=== PATIENT | female | born 1945 | race Hispanic/Latino ===

== ENCOUNTER 2024-07-08 16:50 | Inpatient (IN) | payer OTHER ==
[~2024-07-08] VITALS: Ht 162.6 cm; Wt 65.2 kg
[2024-07-08] VITALS (22 sets, daily range): BP systolic 83–138; BP diastolic 31–68; PULSE 86–113; RESP 12–30; TEMP 100.6–101.6; O2SAT 99
[2024-07-08] MEDS ORDERED: 0.9%NACL 1000ML 1,000 ML IV SCH ×2 (18:00→19:00)
[2024-07-08] MEDS ORDERED: MAGNESIUM 2GM PREMIX 50ML 50 ML IV SCH (18:00)
[2024-07-08 18:30] LABS: BASOPHILS # (AUTO) 0.05 K/uL (0.00-0.20); BASOPHILS % (AUTO) 0.2 % (0.0-5.0); HEMATOCRIT 32.1 % (36-48); IMMATURE GRANULOCYTE ABSOLUTE 0.24 K/uL (0-1); LYMPHOCYTES # (AUTO) 0.6 K/uL (1.0-4.8); LYMPHOCYTES % (AUTO) 2.2 % (21.0-51.0); MEAN CORPUSCULAR HEMOGLOBIN 31.3 pg (27.0-33.0); MEAN CORPUSCULAR HGB CONC 32.4 g/dL (32.0-36.0); MEAN CORPUSCULAR VOLUME 96.7 fL (79-99); MONOCYTES # (AUTO) 1.7 K/uL (0.1-1.0); MONOCYTES % (AUTO) 5.9 % (3.0-13.0); NEUTROPHILS # (AUTO) 26.6 K/uL (1.8-7.7); NEUTROPHILS % (AUTO) 90.9 % (40.0-77.0); PLATELET COUNT (AUTO) 210 K/uL (130-400); RED BLOOD CELL COUNT(AUTO) 3.32 MIL/uL (4.00-5.50); WHITE BLOOD COUNT (AUTO) 29.2 K/uL (4.8-10.8)
[2024-07-08 18:58] LABS: HEMOGLOBIN A1C 11.5 % (4.0-6.0)
[2024-07-08] MEDS ORDERED: HEParin 5,000 UNIT VIAL IV PRN (19:00)
[2024-07-08 19:03] LABS: ALBUMIN 3.3 g/dL (3.5-5.0); BILIRUBIN,TOTAL 0.3 mg/dL (0.2-1.0); CREATININE 2.5 mg/dL (0.5-1.0); POTASSIUM 4.4 mmol/L (3.5-5.1); THYROID STIMULATING HORMONE 1.8 uIU/mL (0.36-3.74); TOTAL PROTEIN, SERUM 7.1 g/dL (6.0-8.3)
[2024-07-08] MEDS: levoFLOXacin 500 MG/D5W 100 ML 100 ML IV SCH (19:09)
[2024-07-08] MEDS: HEParin 25,000 UNITS/250ML D5W 250 ML IV SCH (19:18)
[2024-07-08] MEDS: INSULIN REGULAR, HUMAN 3ML 100 UNIT in 0.9%NACL 100ML 100 ML IV SCH (19:21)
[2024-07-08 19:35] LABS: ABG BASE EXCESS -10.4 mmol/L (-2.0-3.0); ABG HCO3 13.1 mmol/L (21.0-28.0); ABG OXYGEN SATURATION 98.1 % (94.0-98.0); ABG PCO2 23 mmHg (32-45); ABG PH 7.375 (7.350-7.450); CARBON MONOXIDE 0.3 % (0.5-1.5); DEVICE COMMENT LR RN TED; HHb 1.9; PO2, ARTERIAL BG 147.6 mmHg (83.0-108.0); VENT MODE, BG NC (ROOM AIR)
[2024-07-08] MEDS ORDERED: PHARMACY COMMUNICATION MISC SCH (20:00)
[2024-07-08] MEDS: RENAL DOSE IV ONE (20:00)
[2024-07-08] MEDS ORDERED: VANCOMYCIN PROTOCOL PER PHARMACY IV SCH (20:00)
[2024-07-08] MEDS: ALBUTEROL 0.083% 2.5 MG/3 ML INH IH STA (20:29)
[2024-07-08] MEDS ORDERED: acetaMINOPHEN 650 MG SUPPOSITORY RC PRN (20:30)
[2024-07-08] MEDS ORDERED: ONDANSETRON 4MG INJ IVP PRN (20:30)
[2024-07-08] MEDS ORDERED: DiphenhydrAMINE HCL 50 MG/ML VIAL IV PRN (20:30)
[2024-07-08] MEDS: POTASSIUM CHLORIDE 20MEQ/10ML 20 MEQ in 0.9%NACL 1000ML 990 ML IV SCH (20:54)
[2024-07-08 21:13] LABS: CREATININE 2.6 mg/dL (0.5-1.0); POTASSIUM 4.3 mmol/L (3.5-5.1)
[2024-07-08] MEDS: FAMOTIDINE 20MG VIAL IV SCH (21:31)
[2024-07-08] MEDS: ceFEPime HCL 1 GM VIAL IVPB SCH (21:31)
[2024-07-08] MEDS: VANCOMYCIN 1G/250ML KIT 250 ML IV SCH (21:32)
[2024-07-08 23:53] LABS: INFLUENZA TYPE A Negative For Type A (NEGATIVE); INFLUENZA TYPE B Negative For Type B (NEGATIVE)
[2024-07-09] VITALS (51 sets, daily range): BP systolic 80–140; BP diastolic 26–74; PULSE 81–102; RESP 15–63; TEMP 97.7–99.1; O2SAT 94–99
[2024-07-09 00:01] LABS: SARS-CoV-2, RNA, NAAT NEGATIVE SARS CoV-2 (NEGATIVE)
[2024-07-09 01:17] LABS: CREATININE 2.6 mg/dL (0.5-1.0); POTASSIUM 3.5 mmol/L (3.5-5.1)
[2024-07-09] MEDS: POTASSIUM CHLORIDE 10MEQ/100ML 100 ML IV PRN (01:47)
[2024-07-09] MEDS: D5W-1/2 NS/20MEQ KCL 1,000 ML IV SCH (01:50)
[2024-07-09] MEDS: NOREPINEPHRIN 4MG/NS 250ML 250 ML IV PRN (02:24)
[2024-07-09] MEDS: 0.9%NACL 1000ML 1,000 ML IV SCH (03:28)
[2024-07-09] MEDS ORDERED: ALBUMIN (HUMAN) 25% 50 ML IV SCH (03:30)
[2024-07-09 04:19] LABS: BASOPHILS # (AUTO) 0.02 K/uL (0.00-0.20); BASOPHILS % (AUTO) 0.1 % (0.0-5.0); HEMATOCRIT 28.2 % (36-48); LYMPHOCYTES # (AUTO) 0.6 K/uL (1.0-4.8); LYMPHOCYTES % (AUTO) 2.8 % (21.0-51.0); MEAN CORPUSCULAR HEMOGLOBIN 31.6 pg (27.0-33.0); MEAN CORPUSCULAR HGB CONC 32.6 g/dL (32.0-36.0); MEAN CORPUSCULAR VOLUME 96.9 fL (79-99); MONOCYTES # (AUTO) 1.5 K/uL (0.1-1.0); MONOCYTES % (AUTO) 6.3 % (3.0-13.0); NEUTROPHILS # (AUTO) 20.6 K/uL (1.8-7.7); NEUTROPHILS % (AUTO) 89.9 % (40.0-77.0); PLATELET COUNT (AUTO) 184 K/uL (130-400); RED BLOOD CELL COUNT(AUTO) 2.91 MIL/uL (4.00-5.50); RED CELL DISTRIBUTION WIDTH 14.3 % (11.0-15.5); WHITE BLOOD COUNT (AUTO) 22.9 K/uL (4.8-10.8)
[2024-07-09 04:43] LABS: CREATININE 2.7 mg/dL (0.5-1.0); MAGNESIUM 2.1 mg/dL (1.80-2.40); POTASSIUM 4.1 mmol/L (3.5-5.1)
[2024-07-09] MEDS: ASPIRIN 81MG CHEW TAB PO SCH (08:18)
[2024-07-09] MEDS: CLOPIDOGREL 75MG TAB PO SCH (08:19)
[2024-07-09 09:32] LABS: ABG BASE EXCESS -10.3 mmol/L (-2.0-3.0); ABG HCO3 13.3 mmol/L (21.0-28.0); ABG PCO2 25 mmHg (32-45); ABG PH 7.347 (7.350-7.450); DEVICE COMMENT LR SYLVIA; PO2, ARTERIAL BG 161.1 mmHg (83.0-108.0); VENT MODE, BG NC (ROOM AIR)
[2024-07-09 09:44] LABS: CREATININE 2.5 mg/dL (0.5-1.0); POTASSIUM 4.3 mmol/L (3.5-5.1)
[2024-07-09 11:28] LABS: CREATININE,URINE RANDOM 46.56 mg/dL (30-135)
[2024-07-09 11:32] LABS: APPEARANCE,URINE CLOUDY (CLEAR); BILIRUBIN,URINE NEGATIVE (NEGATIVE); COLOR,URINE LIGHT-YELLOW (YELLOW); GLUCOSE, URINE (UA) >=1000 mg/dL (NEGATIVE); KETONES,URINE 5 mg/dL (NEGATIVE); LEUKOCYTE ESTERASE ,URINE 75 Leu/uL (NEGATIVE); NITRATE,URINE NEGATIVE (NEGATIVE); OCCULT BLOOD,URINE SMALL (NEGATIVE); PH,URINE 5.5 (5.0-8.0); PROTEIN,URINE 30 mg/dL (NEGATIVE); UROBILINOGEN,URINE 0.2 mg/dL (0.2-1.0)
[2024-07-09 11:33] LABS: ADD UA MICROSCOPIC YES
[2024-07-09 11:35] LABS: BACTERIA,URINE MOD /HPF (None Seen); MUCUS,URINE RARE LPF (None Seen); SQUAMOUS EPITHELIAL CELL,UR RARE /HPF (0-2); WBC,URINE 26-50 /HPF (0-1)
[2024-07-09] MEDS ORDERED: GLUCAGON 1MG KIT 1 MG ML IM PRN (12:00)
[2024-07-09] MEDS: furoSEMIDE 20MG VIAL IV SCH (12:03)
[2024-07-09] MEDS: INSULIN GLARgine 100 UNITS/ML 10 ML VIAL SQ SCH ×2 (12:09→20:39)
[2024-07-09] MEDS: SODIUM BICARB 50MEQ 50ML VIAL IV ONE (13:56)
[2024-07-09 14:42] LABS: CREATININE 1.7 mg/dL (0.5-1.0); POTASSIUM 3.6 mmol/L (3.5-5.1)
[2024-07-09] MEDS: INSULIN humuLIN R 100 UNIT/ML 3ML SQ SCH (17:24)
[2024-07-09] MEDS ORDERED: PARO40TA72 PO (18:39)
[2024-07-09] MEDS ORDERED: LEVO75CA5 PO (18:39)
[2024-07-09] MEDS ORDERED: FURO40SO PO (18:39)
[2024-07-09] MEDS ORDERED: LINA5TAB PO (18:39)
[2024-07-09 20:29] LABS: CREATININE 2.7 mg/dL (0.5-1.0); POTASSIUM 4.4 mmol/L (3.5-5.1)
[2024-07-09] MEDS: LACTATED RINGERS 1000ML 1,000 ML IV SCH (20:38)
[2024-07-10] VITALS (34 sets, daily range): BP systolic 89–123; BP diastolic 42–71; PULSE 76–159; RESP 14–27; TEMP 97.9–98.7; O2SAT 95–100
[2024-07-10 04:32] LABS: BASOPHILS # (AUTO) 0.02 K/uL (0.00-0.20); BASOPHILS % (AUTO) 0.1 % (0.0-5.0); EOSINOPHILS # (AUTO) 0.01 K/uL (0.00-0.70); EOSINOPHILS % (AUTO) 0.1 % (0.0-8.0); HEMATOCRIT 27.2 % (36-48); IMMATURE GRANULOCYTE ABSOLUTE 0.14 K/uL (0-1); LYMPHOCYTES # (AUTO) 1.1 K/uL (1.0-4.8); LYMPHOCYTES % (AUTO) 5.6 % (21.0-51.0); MEAN CORPUSCULAR HEMOGLOBIN 31.4 pg (27.0-33.0); MEAN CORPUSCULAR VOLUME 98.2 fL (79-99); MONOCYTES # (AUTO) 1.4 K/uL (0.1-1.0); MONOCYTES % (AUTO) 7.2 % (3.0-13.0); NEUTROPHILS % (AUTO) 86.3 % (40.0-77.0); PLATELET COUNT (AUTO) 128 K/uL (130-400); RED BLOOD CELL COUNT(AUTO) 2.77 MIL/uL (4.00-5.50); RED CELL DISTRIBUTION WIDTH 15.3 % (11.0-15.5); WHITE BLOOD COUNT (AUTO) 19.6 K/uL (4.8-10.8)
[2024-07-10 04:50] LABS: % IRON SATURATION 18.6 % (22-44)
[2024-07-10 05:02] LABS: ALBUMIN 2.6 g/dL (3.5-5.0); BILIRUBIN,TOTAL 0.3 mg/dL (0.2-1.0); CREATININE 2.7 mg/dL (0.5-1.0); MAGNESIUM 2.2 mg/dL (1.80-2.40); PHOSPHORUS 3.3 mg/dL (2.5-4.9); POTASSIUM 4.5 mmol/L (3.5-5.1); TOTAL PROTEIN, SERUM 6.2 g/dL (6.0-8.3); VANCOMYCIN LEVEL 12.7 mcg/mL (20.0-30.0)
[2024-07-10] MEDS: acetaMINOPHEN 500 MG TABLET PO PRN (06:37)
[2024-07-10] MEDS: furoSEMIDE 20MG VIAL IV SCH (09:09)
[2024-07-10] MEDS: polyETHYLene GLYCol 3350 17 GM POWD.PACK PO SCH (09:10)
[2024-07-10] MEDS: IpraTROPium/alBUTERol SULFATE 3 ML SOLUTION IH PRN (09:29)
[2024-07-10] MEDS: SODIUM CHLORIDE 3% FOR INHALATION 4 ML/AMP VIAL.NEB IH ONE ×2 (09:30→23:25)
[2024-07-10] MEDS ORDERED: acetaMINOPHEN 325 MG TAB PO PRN (10:30)
[2024-07-10] MEDS: GABApentin 100 MG CAPSULE PO SCH (10:34)
[2024-07-10 11:14] LABS: INR 1.04 (0.85-1.15); PROTHROMBIN TIME 11.2 SEC (9.6-11.6)
[2024-07-10] MEDS: EPOETIN ALFA-EPBX (NON-ESRD) 10,000 UNIT/ML VIAL SQ ONE (12:15)
[2024-07-10] MEDS ORDERED: COMPOUND IV MISC 1 EACH IVSOLN MISC PRN (12:30)
[2024-07-10] MEDS ORDERED: NS-20 MEQ KCL 1000ML 1,000 ML IV SCH (12:30)
[2024-07-10] MEDS: MEROPENEM 1 GM in 0.9%NACL 100ML 100 ML IV SCH (13:55)
[2024-07-10] MEDS ORDERED: morPHINE 2 MG SYG IVP PRN (14:00)
[2024-07-10] MEDS: IRON sUCROse COMPLEX 300 MG in 0.9% NACL 250ML 250 ML IV ONE (15:49)
[2024-07-10] MEDS ORDERED: GABApentin 100 MG CAPSULE PO PRN (16:30)
[2024-07-10 17:19] LABS: CREATININE 2.6 mg/dL (0.5-1.0); POTASSIUM 4.2 mmol/L (3.5-5.1)
[2024-07-10] MEDS: AMIOdarone 150MG VIAL 150 MG in DEXTROSE 5%-WATER 100 ML IV ONE (17:48)
[2024-07-10] MEDS: AMIOdarone 900MG VIAL 360 MG in DEXTROSE 5%-WATER 200 ML IV SCH (17:49)
[2024-07-10] MEDS ORDERED: ceFEPime HCL 1 GM VIAL IVPB SCH (20:00)
[2024-07-10] MEDS ORDERED: VANCOMYCIN 1G/250ML KIT 250 ML IV SCH (21:00)
[2024-07-10] MEDS: NYSTatin 100000 UNIT/ML 5ML UDCUP PO SCH (21:17)
[2024-07-10] MEDS: BENZOCAINE/MENTH/CETYLPYRD CL 1 EACH LOZENGE MM PRN (21:17)
[2024-07-11] VITALS (39 sets, daily range): BP systolic 78–108; BP diastolic 37–78; PULSE 70–86; RESP 14–65; TEMP 96.9–100; O2SAT 94–100
[2024-07-11] MEDS: AMIOdarone 900MG VIAL 540 MG in DEXTROSE 5%-WATER 300 ML IV STA (03:05)
[2024-07-11] MEDS: SODIUM CHLORIDE 3% FOR INHALATION 4 ML/AMP VIAL.NEB IH ONE (03:16)
[2024-07-11 04:11] LABS: BASOPHILS # (AUTO) 0.02 K/uL (0.00-0.20); BASOPHILS % (AUTO) 0.1 % (0.0-5.0); HEMATOCRIT 26.4 % (36-48); IMMATURE GRANULOCYTE ABSOLUTE 0.18 K/uL (0-1); LYMPHOCYTES % (AUTO) 4.8 % (21.0-51.0); MEAN CORPUSCULAR HEMOGLOBIN 31.9 pg (27.0-33.0); MEAN CORPUSCULAR HGB CONC 32.6 g/dL (32.0-36.0); MEAN CORPUSCULAR VOLUME 97.8 fL (79-99); MONOCYTES # (AUTO) 1.2 K/uL (0.1-1.0); NEUTROPHILS # (AUTO) 17.8 K/uL (1.8-7.7); NEUTROPHILS % (AUTO) 88.2 % (40.0-77.0); NUCLEATED RED BLOOD CELLS 0.1 % (0.0-0.19); PLATELET COUNT (AUTO) 111 K/uL (130-400); RED CELL DISTRIBUTION WIDTH 15.6 % (11.0-15.5); WHITE BLOOD COUNT (AUTO) 20.2 K/uL (4.8-10.8)
[2024-07-11 04:26] LABS: ALBUMIN 2.3 g/dL (3.5-5.0); BILIRUBIN,TOTAL 0.4 mg/dL (0.2-1.0); CREATININE 2.7 mg/dL (0.5-1.0); MAGNESIUM 2.1 mg/dL (1.80-2.40); PHOSPHORUS 3.8 mg/dL (2.5-4.9); POTASSIUM 3.9 mmol/L (3.5-5.1); TOTAL PROTEIN, SERUM 6.1 g/dL (6.0-8.3)
[2024-07-11] MEDS: levoTHYROxine 75 MCG TABLET PO SCH (06:03)
[2024-07-11] MEDS: PARoxetine HCL 20 MG TABLET PO SCH (08:29)
[2024-07-11] MEDS: HEParin 5,000 UNIT VIAL SQ SCH (08:33)
[2024-07-11] MEDS: LIDOCAINE 4% ADH..PATCH TP SCH (08:40)
[2024-07-11] MEDS: metoPROLOL tartRATE 25 MG TAB PO SCH (08:41)
[2024-07-11] MEDS ORDERED: FERROUS GLUCONATE 324MG TABLET.DR PO SCH (09:00)
[2024-07-11] MEDS: 0.9%NACL 1000ML 1,000 ML IV SCH (12:11)
[2024-07-11] MEDS ORDERED: AMIOdarone 200 MG TABLET PO SCH (17:00)
[2024-07-11] MEDS: AMIOdarone 200 MG TABLET PO SCH (20:54)
[2024-07-12] VITALS (18 sets, daily range): BP systolic 88–128; BP diastolic 54–77; PULSE 74–77; RESP 14–21; TEMP 97.5–98.9; O2SAT 94–100
[2024-07-12 04:06] LABS: BASOPHILS # (AUTO) 0.02 K/uL (0.00-0.20); BASOPHILS % (AUTO) 0.1 % (0.0-5.0); HEMATOCRIT 25.8 % (36-48); IMMATURE GRANULOCYTE ABSOLUTE 0.15 K/uL (0-1); LYMPHOCYTES # (AUTO) 0.8 K/uL (1.0-4.8); LYMPHOCYTES % (AUTO) 5.3 % (21.0-51.0); MEAN CORPUSCULAR HGB CONC 32.2 g/dL (32.0-36.0); MEAN CORPUSCULAR VOLUME 96.3 fL (79-99); MONOCYTES # (AUTO) 0.8 K/uL (0.1-1.0); MONOCYTES % (AUTO) 5.1 % (3.0-13.0); NEUTROPHILS # (AUTO) 13.9 K/uL (1.8-7.7); NEUTROPHILS % (AUTO) 88.5 % (40.0-77.0); NUCLEATED RED BLOOD CELLS 0.8 % (0.0-0.19); PLATELET COUNT (AUTO) 100 K/uL (130-400); RED BLOOD CELL COUNT(AUTO) 2.68 MIL/uL (4.00-5.50); RED CELL DISTRIBUTION WIDTH 15.7 % (11.0-15.5); WHITE BLOOD COUNT (AUTO) 15.7 K/uL (4.8-10.8)
[2024-07-12 04:20] LABS: CREATININE 3.4 mg/dL (0.5-1.0); POTASSIUM 4.2 mmol/L (3.5-5.1)
[2024-07-12] MEDS ORDERED: BENZOCAINE/MENTH/CETYLPYRD CL 1 EACH LOZENGE MM PRN (07:00)
[2024-07-12] MEDS ORDERED: BENZONATATE 100 MG CAPSULE PO PRN (07:00)
[2024-07-12] MEDS: FERROUS GLUCONATE 324MG TABLET.DR PO SCH (10:21)
[2024-07-12] MEDS: miDODRine HCL 5 MG TABLET PO SCH (14:03)
[2024-07-12] MEDS: furoSEMIDE 20 MG TABLET PO SCH (18:04)
[2024-07-13] VITALS (10 sets, daily range): BP systolic 97–117; BP diastolic 47–66; PULSE 61–75; RESP 13–20; TEMP 97.6–98; O2SAT 100
[2024-07-13 02:13] LABS: INFLUENZA TYPE A Negative For Type A (NEGATIVE); INFLUENZA TYPE B Negative For Type B (NEGATIVE)
[2024-07-13 02:14] LABS: COVID19 (SARS ANTIGEN RAPID) PRESUMPTIVE NEGATIVE (NEGATIVE)
[2024-07-13 07:01] LABS: HEMATOCRIT 29.8 % (36-48); MEAN CORPUSCULAR HEMOGLOBIN 31.1 pg (27.0-33.0); MEAN CORPUSCULAR HGB CONC 31.9 g/dL (32.0-36.0); MEAN CORPUSCULAR VOLUME 97.7 fL (79-99); RED BLOOD CELL COUNT(AUTO) 3.05 MIL/uL (4.00-5.50); RED CELL DISTRIBUTION WIDTH 15.7 % (11.0-15.5); WHITE BLOOD COUNT (AUTO) 15.2 K/uL (4.8-10.8)
[2024-07-13 07:08] LABS: CREATININE 3.3 mg/dL (0.5-1.0); POTASSIUM 4.2 mmol/L (3.5-5.1)
[2024-07-13] MEDS: furoSEMIDE 20 MG TABLET PO SCH (11:19)
[2024-07-13] MEDS: SODIUM BICARBONATE 650 MG TAB PO SCH (14:22)
[2024-07-14] VITALS (9 sets, daily range): BP systolic 90–162; BP diastolic 50–95; PULSE 59–79; RESP 16–20; TEMP 96–98.3; O2SAT 95–100
[2024-07-14 04:21] LABS: BASOPHILS # (AUTO) 0.06 K/uL (0.00-0.20); BASOPHILS % (AUTO) 0.3 % (0.0-5.0); EOSINOPHILS # (AUTO) 0.01 K/uL (0.00-0.70); EOSINOPHILS % (AUTO) 0.1 % (0.0-8.0); HEMATOCRIT 31.9 % (36-48); LYMPHOCYTES # (AUTO) 1.4 K/uL (1.0-4.8); LYMPHOCYTES % (AUTO) 7.6 % (21.0-51.0); MEAN CORPUSCULAR HEMOGLOBIN 31.5 pg (27.0-33.0); MEAN CORPUSCULAR VOLUME 98.5 fL (79-99); MONOCYTES # (AUTO) 1.4 K/uL (0.1-1.0); MONOCYTES % (AUTO) 7.7 % (3.0-13.0); NEUTROPHILS # (AUTO) 14.9 K/uL (1.8-7.7); NEUTROPHILS % (AUTO) 80.5 % (40.0-77.0); NUCLEATED RED BLOOD CELLS 2.6 % (0.0-0.19); PLATELET COUNT (AUTO) 150 K/uL (130-400); RED BLOOD CELL COUNT(AUTO) 3.24 MIL/uL (4.00-5.50); RED CELL DISTRIBUTION WIDTH 15.7 % (11.0-15.5); WHITE BLOOD COUNT (AUTO) 18.5 K/uL (4.8-10.8)
[2024-07-14 04:41] LABS: CREATININE 3.2 mg/dL (0.5-1.0); POTASSIUM 4.1 mmol/L (3.5-5.1)
[2024-07-14] MEDS: INSULIN GLARgine 100 UNITS/ML 10 ML VIAL SQ ONE (23:23)
[2024-07-15] VITALS (11 sets, daily range): BP systolic 99–136; BP diastolic 53–78; PULSE 63–81; RESP 16–20; TEMP 96.8–98.8; O2SAT 93–97
[2024-07-15 04:07] LABS: BASOPHILS # (AUTO) 0.07 K/uL (0.00-0.20); BASOPHILS % (AUTO) 0.3 % (0.0-5.0); EOSINOPHILS # (AUTO) 0.02 K/uL (0.00-0.70); EOSINOPHILS % (AUTO) 0.1 % (0.0-8.0); HEMATOCRIT 31.1 % (36-48); IMMATURE GRANULOCYTE ABSOLUTE 0.75 K/uL (0-1); MEAN CORPUSCULAR HEMOGLOBIN 31.3 pg (27.0-33.0); MEAN CORPUSCULAR HGB CONC 32.8 g/dL (32.0-36.0); MEAN CORPUSCULAR VOLUME 95.4 fL (79-99); MONOCYTES # (AUTO) 2.3 K/uL (0.1-1.0); MONOCYTES % (AUTO) 10.6 % (3.0-13.0); NEUTROPHILS # (AUTO) 16.5 K/uL (1.8-7.7); NEUTROPHILS % (AUTO) 76.5 % (40.0-77.0); NUCLEATED RED BLOOD CELLS 6.8 % (0.0-0.19); PLATELET COUNT (AUTO) 160 K/uL (130-400); RED BLOOD CELL COUNT(AUTO) 3.26 MIL/uL (4.00-5.50); RED CELL DISTRIBUTION WIDTH 15.7 % (11.0-15.5); WHITE BLOOD COUNT (AUTO) 21.6 K/uL (4.8-10.8)
[2024-07-15 04:30] LABS: LYMPHOCYTES % (MANUAL) 8 % (22-44); MAN.DIFF COMMENT-IMPRESSION MANUAL DIFFERENTIAL; MONOCYTES % (MANUAL) 15 % (2-9); SEGMENTED NEUTROPHILS % 77 % (40-70); TOTAL CELLS COUNTED 100; WBC MORPHOLOGY SMUDGE CELLS 1+
[2024-07-15 04:34] LABS: ALBUMIN 2.6 g/dL (3.5-5.0); BILIRUBIN,TOTAL 0.3 mg/dL (0.2-1.0); CREATININE 2.9 mg/dL (0.5-1.0); POTASSIUM 3.6 mmol/L (3.5-5.1); TOTAL PROTEIN, SERUM 6.6 g/dL (6.0-8.3)
[2024-07-15] MEDS: DEXTROSE 50%-WATER 50 ML DISP.SYRIN IV PRN (05:11)
[2024-07-15] MEDS: DEXTROSE 10%-WATER 1,000 ML IV SCH (06:13)
[2024-07-15] MEDS: LACTATED RINGERS 1000ML IV ONE (17:15)
[2024-07-16 03:10] VITALS: BP 115/54; PULSE 71; RESP 18; TEMP 98.8
[2024-07-16 04:23] LABS: BASOPHILS # (AUTO) 0.02 K/uL (0.00-0.20); BASOPHILS % (AUTO) 0.1 % (0.0-5.0); EOSINOPHILS # (AUTO) 0.03 K/uL (0.00-0.70); EOSINOPHILS % (AUTO) 0.2 % (0.0-8.0); HEMATOCRIT 27.1 % (36-48); IMMATURE GRANULOCYTE ABSOLUTE 0.32 K/uL (0-1); LYMPHOCYTES # (AUTO) 1.4 K/uL (1.0-4.8); MEAN CORPUSCULAR HEMOGLOBIN 31.3 pg (27.0-33.0); MEAN CORPUSCULAR HGB CONC 31.7 g/dL (32.0-36.0); MEAN CORPUSCULAR VOLUME 98.5 fL (79-99); MONOCYTES # (AUTO) 1.5 K/uL (0.1-1.0); MONOCYTES % (AUTO) 9.9 % (3.0-13.0); NEUTROPHILS # (AUTO) 11.9 K/uL (1.8-7.7); NEUTROPHILS % (AUTO) 78.7 % (40.0-77.0); NUCLEATED RED BLOOD CELLS 3.9 % (0.0-0.19); PLATELET COUNT (AUTO) 125 K/uL (130-400); RED BLOOD CELL COUNT(AUTO) 2.75 MIL/uL (4.00-5.50); RED CELL DISTRIBUTION WIDTH 15.9 % (11.0-15.5); WHITE BLOOD COUNT (AUTO) 15.1 K/uL (4.8-10.8)
[2024-07-16 04:41] LABS: ALBUMIN 2.4 g/dL (3.5-5.0); BILIRUBIN,TOTAL 0.3 mg/dL (0.2-1.0); CREATININE 2.7 mg/dL (0.5-1.0); MAGNESIUM 2.5 mg/dL (1.80-2.40); PHOSPHORUS 4.1 mg/dL (2.5-4.9); POTASSIUM 3.8 mmol/L (3.5-5.1); TOTAL PROTEIN, SERUM 5.9 g/dL (6.0-8.3)
[2024-07-16 07:00] VITALS: BP 139/67; PULSE 69; RESP 18; TEMP 98.6
[2024-07-16 07:08] VITALS: PULSE 69; RESP 20; O2SAT 91
[2024-07-16 08:00] VITALS: O2SAT 93
[2024-07-16 11:00] VITALS: BP 112/64; PULSE 64; RESP 18; TEMP 98.6
== END 2024-07-16 14:50 | DRG 871 ==
LOC: 2CH 17:38 → 2BH 07-10 05:52 → 2AH 07-12 12:00
PROVIDERS: ADMIT Internal Medicine; ATTEND Internal Medicine
PROC: 05HB33Z Insertion of Infusion Device into Right Basilic Vein, Percutaneous Approach (ICD-10-PCS; principal; 2024-07-08)
DX: A41.50 Gram-negative sepsis, unspecified (principal); E11.10 Type 2 diabetes mellitus with ketoacidosis without coma; G93.41 Metabolic encephalopathy; I50.41 Acute combined systolic (congestive) and diastolic (congestive) heart failure; I21.09 ST elevation (STEMI) myocardial infarction involving other coronary artery of anterior wall; J96.01 Acute respiratory failure with hypoxia; R65.21 Severe sepsis with septic shock; I13.0 Hypertensive heart and chronic kidney disease with heart failure and stage 1 through stage 4 chronic kidney disease, or unspecified chronic kidney disease; G93.49 Other encephalopathy; N17.9 Acute kidney failure, unspecified; N30.00 Acute cystitis without hematuria; N18.9 Chronic kidney disease, unspecified; E11.22 Type 2 diabetes mellitus with diabetic chronic kidney disease; E78.5 Hyperlipidemia, unspecified; I25.10 Atherosclerotic heart disease of native coronary artery without angina pectoris; Z66 Do not resuscitate; D64.9 Anemia, unspecified; E83.39 Other disorders of phosphorus metabolism; E87.5 Hyperkalemia; I25.5 Ischemic cardiomyopathy; I07.1 Rheumatic tricuspid insufficiency; I48.91 Unspecified atrial fibrillation; M81.0 Age-related osteoporosis without current pathological fracture; N28.1 Cyst of kidney, acquired; R62.7 Adult failure to thrive; Z83.3 Family history of diabetes mellitus; Z90.5 Acquired absence of kidney; Z91.199 Patient's noncompliance with other medical treatment and regimen due to unspecified reason; Z88.0 Allergy status to penicillin; Z79.4 Long term (current) use of insulin; Z79.899 Other long term (current) drug therapy
CPT/HCPCS: 36415; 36556; 36600; 71045; 74018; 74176; 76770; 80048; 80053; 80061; 80202; 81001; 82010; 82330; 82435; 82570; 82803; 82947; 82948; 83036; 83540; 83550; 83605; 83735; 83880; 84100; 84132; 84145; 84295; 84300; 84443; 84484; 85018; 85025; 85027; 85610; 85730; 86140; 87040; 87086; 87426; 87635; 87804; 92610; 93005; 93306; 94640; 94664; 94667; 94668; A4344; C1894; G0378; J0282; J0692; J1644; J1756; J1815; J1940; J1956; J2185; J3370; J3475; J3480; J3490; J7030; J7050; J7060; J7070; A4510; C1750; Q5106